=== PATIENT | female | born 1995 | race Caucasian/White ===

== ENCOUNTER 2021-05-23 11:27 | Outpatient (CLI) | payer OTHER, MEDICAID, SELFPAY ==
[2021-05-23 07:47] LABS: Hematocrit 36.3 % (37.0-47.0); Hemoglobin 12.9 g/dL (12.0-15.0); Mean Corpuscular HGB Conc 35.5 g/dl (32-36); Mean Corpuscular Volume 92.8 fl (80-100); Mean Platelet Volume 9.8 fl (7.4-10.4); Platelet Count Result 153 k/mm3 (150-375); Red Blood Count 3.91 M/mm3 (4.2-5.4); Red Cell Distribution Width 11.1 % (11.5-14.5); White Blood Count 3.9 K/mm3 (4.5-10.0)
[2021-05-23 07:56] LABS: Alanine Aminotransferase 13 U/L (4-35); Albumin Level 4.4 g/dL (3.5-5.1); Alkaline Phosphatase 65 U/L (38-126); Anion Gap 3 mmol/L (8-16); Aspartate Amino Transferase 23 U/L (14-36); Blood Urea Nitrogen 21 mg/dL (7-17); Calcium 8.8 mg/dL (8.4-10.2); Carbon Dioxide 27 mmol/L (22-30); Chloride 104 mmol/L (98-107); Cholesterol 125 mg/dL (0-200); Estimated Glomerular Filt Rate > 60; Glucose 85 mg/dL (65-110); HDL Direct 52 mg/dL; Sodium 134 mmol/L (137-145); Triglycerides 49 mg/dL (<150)
[2021-05-23 08:07] LABS: LDL Cholesterol Direct 52 mg/dL
[2021-05-23 12:40] LABS: Iron 105 ug/dL (37-170)
[2021-05-23 12:50] LABS: Percent Iron Saturation 33 % (20-50)
[2021-05-24 06:55] LABS: Basophils Percent Auto 0.5 % (0.2-1.2); Eosinophils Absolute Auto 0.1 K/mm3 (0-0.3); Eosinophils Percent Auto 2.1 % (0-4.4); Immature Granulocyte Absolute 0.01 K/mm3 (0.00-0.031); Immature Granulocyte Percent A 0.3 % (0-0.5); Lymphocytes Absolute Auto 1.55 K/mm3 (0.9-3.2); Lymphocytes Percent Auto 40.2 % (18.3-44.2); Monocytes Absolute Auto 0.6 K/mm3 (0.1-0.6); Monocytes Percent Auto 14.8 % (2.6-8.5); Neutrophils Absolute Auto 1.6 K/mm3 (1.3-6.7); Neutrophils Percent Auto 42.1 % (45.5-73.1)
== END 2021-05-23 11:28 | disposition home or self-care (01) ==
PROVIDERS: PCP Family Medicine; Visit Provider Nurse Practitioner Family
DX: F41.8 Other specified anxiety disorders (principal); R60.9 Edema, unspecified; E55.9 Vitamin D deficiency, unspecified; Z13.220 Encounter for screening for lipoid disorders; D64.9 Anemia, unspecified
CPT/HCPCS: 36415; 80053; 80061; 82306; 83540; 83550; 84443; 85025; 85027

== ENCOUNTER 2021-05-28 11:27 | Outpatient (CLI) | payer OTHER, MEDICAID, SELFPAY ==
[2021-05-28 12:03] LABS: CRP < 0.5 mg/dL (<1.0); Rheumatoid Factor < 8.6 IU/ML (<12)
[2021-05-28 12:15] LABS: Erythrocyte Sedimentation Rate 11 mm/hr (0-20)
== END 2021-05-28 11:28 | disposition home or self-care (01) ==
PROVIDERS: PCP Family Medicine; Visit Provider Nurse Practitioner Family
DX: R60.9 Edema, unspecified (principal)
CPT/HCPCS: 36415; 85652; 86038; 86140; 86430

== ENCOUNTER 2021-06-27 11:32 | Outpatient (CLI) | payer OTHER, MEDICAID, SELFPAY ==
[2021-06-27 11:52] LABS: Hemoglobin 13.7 g/dL (12.0-15.0); Mean Corpuscular HGB Conc 34.3 g/dl (32-36); Mean Corpuscular Hemoglobin 32.7 pg (26-34); Mean Corpuscular Volume 95.5 fl (80-100); Mean Platelet Volume 9.7 fl (7.4-10.4); Platelet Count Result 190 k/mm3 (150-375); Red Blood Count 4.19 M/mm3 (4.2-5.4); Red Cell Distribution Width 11.4 % (11.5-14.5); White Blood Count 5.7 K/mm3 (4.5-10.0)
== END 2021-06-27 11:33 | disposition home or self-care (01) ==
LOC: ANHLAB 11:34
PROVIDERS: PCP Family Medicine; Visit Provider Nurse Practitioner Family
DX: D72.9 Disorder of white blood cells, unspecified (principal)
CPT/HCPCS: 36415; 85027

== ENCOUNTER 2021-08-14 07:20 | Outpatient (CLI) | payer OTHER, MEDICAID, SELFPAY ==
--- NOTE | ~2021-08-14 | XR_ITS ---
EXAMINATION: XR chest 2V 08/14/2021 07:32 INDICATION: Cough. Recent Covid infection. PROCEDURE: 2 view chest COMPARISON: No prior studies for comparison. FINDINGS: The lungs are clear. The cardiomediastinal silhouette is within normal limits. There are no pleural effusions. There is no pneumothorax suspected. IMPRESSION: 1: NO ACUTE CARDIOPULMONARY DISEASE. Reviewed, dictated and finalized at location A.
== END 2021-08-14 07:21 | disposition home or self-care (01) ==
PROVIDERS: PCP Family Medicine; Visit Provider Nurse Practitioner Family
DX: R05.9 Cough, unspecified (principal)
CPT/HCPCS: 71046

== ENCOUNTER 2021-11-27 16:39 | Outpatient (CLI) | payer OTHER, MEDICAID, SELFPAY ==
[2021-11-27 17:01] LABS: Basophils Percent Auto 0.7 % (0.2-1.2); Eosinophils Absolute Auto 0.1 K/mm3 (0-0.3); Eosinophils Percent Auto 1.3 % (0-4.4); Hematocrit 38.1 % (37.0-47.0); Hemoglobin 13.2 g/dL (12.0-15.0); Immature Granulocyte Absolute 0.01 K/mm3 (0.00-0.031); Immature Granulocyte Percent A 0.2 % (0-0.5); Lymphocytes Absolute Auto 1.99 K/mm3 (0.9-3.2); Lymphocytes Percent Auto 32.6 % (18.3-44.2); Mean Corpuscular HGB Conc 34.6 g/dl (32-36); Mean Corpuscular Hemoglobin 32.6 pg (26-34); Mean Corpuscular Volume 94.1 fl (80-100); Mean Platelet Volume 9.6 fl (7.4-10.4); Monocytes Absolute Auto 0.6 K/mm3 (0.1-0.6); Monocytes Percent Auto 9.7 % (2.6-8.5); Neutrophils Absolute Auto 3.4 K/mm3 (1.3-6.7); Neutrophils Percent Auto 55.5 % (45.5-73.1); Platelet Count Result 194 k/mm3 (150-375); Red Blood Count 4.05 M/mm3 (4.2-5.4); Red Cell Distribution Width 11.4 % (11.5-14.5); White Blood Count 6.1 K/mm3 (4.5-10.0)
[2021-11-27 17:10] LABS: Alanine Aminotransferase 13 U/L (6-35); Albumin Level 4.8 g/dL (3.5-5.1); Alkaline Phosphatase 69 U/L (38-126); Anion Gap 11 mmol/L (8-16); Aspartate Amino Transferase 23 U/L (14-36); Bilirubin,Total 0.6 mg/dL (0.2-1.3); Blood Urea Nitrogen 11 mg/dL (7-17); Calcium 9.8 mg/dL (8.4-10.2); Carbon Dioxide 27 mmol/L (22-30); Chloride 103 mmol/L (98-107); Estimated Glomerular Filt Rate > 60; Glucose 85 mg/dL (65-110); Potassium 3.6 mmol/L (3.4-5.0); Sodium 141 mmol/L (137-145)
[2021-11-27 17:33] LABS: Iron 69 ug/dL (37-170)
[2021-11-27 17:43] LABS: Percent Iron Saturation 20 % (20-50)
[2021-11-27 17:53] LABS: Vitamin D 25 Hydroxy 41.8 ng/mL
[2021-11-30 15:49] LABS: Testosterone Free 2.5 pg/mL (0.1-6.4); Testosterone Total 17 ng/dL (2-45)
== END 2021-11-27 16:40 | disposition home or self-care (01) ==
PROVIDERS: PCP Family Medicine; Visit Provider Family Medicine
DX: E55.9 Vitamin D deficiency, unspecified (principal); D64.9 Anemia, unspecified; R53.83 Other fatigue; R68.82 Decreased libido; F41.8 Other specified anxiety disorders
CPT/HCPCS: 36415; 80048; 80076; 82306; 82607; 83540; 83550; 84402; 84403; 84443; 85025

== ENCOUNTER 2022-04-01 11:40 | Outpatient (CLI) | payer OTHER, MEDICAID, SELFPAY ==
[2022-04-01 12:47] LABS: Hematocrit 39.4 % (37.0-47.0); Hemoglobin 13.5 g/dL (12.0-15.0); Mean Corpuscular HGB Conc 34.3 g/dl (32-36); Mean Corpuscular Hemoglobin 32.4 pg (26-34); Mean Corpuscular Volume 94.5 fl (80-100); Mean Platelet Volume 9.9 fl (7.4-10.4); Platelet Count Result 180 k/mm3 (150-375); Red Blood Count 4.17 M/mm3 (4.2-5.4); Red Cell Distribution Width 11.4 % (11.5-14.5)
== END 2022-04-01 11:41 | disposition home or self-care (01) ==
PROVIDERS: PCP Family Medicine; Visit Provider Nurse Practitioner Family
DX: D64.9 Anemia, unspecified (principal)
CPT/HCPCS: 36415; 85027

== ENCOUNTER 2022-04-16 07:20 | Outpatient (CLI) | payer OTHER, MEDICAID, SELFPAY ==
[2022-04-16 08:13] LABS: Hemoglobin 13.5 g/dL (12.0-15.0); Mean Corpuscular HGB Conc 34.6 g/dl (32-36); Mean Corpuscular Hemoglobin 32.1 pg (26-34); Mean Corpuscular Volume 92.9 fl (80-100); White Blood Count 5.6 K/mm3 (4.5-10.0)
[2022-04-16 08:14] LABS: Basophils Percent Auto 0.7 % (0.2-1.2); Eosinophils Absolute Auto 0.1 K/mm3 (0-0.3); Eosinophils Percent Auto 1.6 % (0-4.4); Immature Granulocyte Absolute 0.02 K/mm3 (0.00-0.031); Immature Granulocyte Percent A 0.4 % (0-0.5); Lymphocytes Absolute Auto 2.01 K/mm3 (0.9-3.2); Lymphocytes Percent Auto 35.9 % (18.3-44.2); Mean Platelet Volume 9.9 fl (7.4-10.4); Monocytes Absolute Auto 0.6 K/mm3 (0.1-0.6); Monocytes Percent Auto 9.8 % (2.6-8.5); Neutrophils Absolute Auto 2.9 K/mm3 (1.3-6.7); Neutrophils Percent Auto 51.6 % (45.5-73.1); Platelet Count Result 198 k/mm3 (150-375); Red Cell Distribution Width 11.1 % (11.5-14.5)
[2022-04-16 08:24] LABS: Anion Gap 5 mmol/L (8-16); Blood Urea Nitrogen 12 mg/dL (7-17); Calcium 9.1 mg/dL (8.4-10.2); Carbon Dioxide 29 mmol/L (22-30); Chloride 105 mmol/L (98-107); Estimated Glomerular Filt Rate > 60; Glucose 81 mg/dL (65-110); Sodium 139 mmol/L (137-145)
[2022-04-16 08:57] LABS: Free T4 Free Thyroxine 1.02 ng/mL (0.78-2.19); Vitamin D 25 Hydroxy 27.2 ng/mL
== END 2022-04-16 07:21 | disposition home or self-care (01) ==
LOC: ANHLAB 07:22
PROVIDERS: PCP Family Medicine; Visit Provider Family Medicine
DX: D64.9 Anemia, unspecified (principal); Z13.39 Encounter for screening examination for other mental health and behavioral disorders; E55.9 Vitamin D deficiency, unspecified
CPT/HCPCS: 36415; 80048; 82306; 84439; 84443; 85025

== ENCOUNTER 2022-05-14 08:11 | Outpatient (CLI) | payer OTHER, MEDICAID, SELFPAY ==
--- NOTE | 2022-05-26 13:46 | WPDHOMESLEEP ---
Sleep Study - Home Unattended Date of Study: 05/14/22 Ordering Provider: Homer Long MD Interpreting Provider: Terri Zimmerman, DO Home Sleep Study Type: Watch PAT Height: 1.7 m Weight: 60.328 kg Body Mass Index: 20.8 Neck Circumference (inches): 13 [place]: 9 Reason for Sleep Study Unrefreshing sleep Sleep History The patient is a 26-year-old female with anxiety, depression, ADHD and Raynaud's syndrome that had a sleep study for evaluation of sleep apnea. The patient denies awakening from sleep short of breath. She denies awakening night with heartburn, belching or. She occasionally snores but is never loudly that others. He occasionally has trouble sleeping she has a cold. He denies waking gasping for air throughout the night. She denies having breathing problems at night observed by herself or others. She frequently sweats excessively at night. He denies having heart palpitations or irregular heartbeats during the night. She occasionally falls asleep the day but never while driving. She rarely experiences loss of muscle tone when extremely. He rarely has trouble at school work due to sleepiness. She denies sleep paralysis and hypnagogic/ hypnopompic hallucinations. He rarely feels afraid of to sleep. She denies having nightmares. She rarely remembers her dreams. She occasionally has thoughts racing through her mind. She rarely feels sad or depressed. She occasionally has anxiety. She denies having muscular tension. She rarely notices parts of her body jerk. She rarely kicks during the night. She denies having crawling and aching feelings in her legs as well as leg pain during the night. She denies grinding her teeth during sleep and denies awakening with morning jaw pain. She denies being bothered by pain during the day and denies being awakened by pain during the night. She denies waking up feeling stiff morning. She denies waking up with sore or achy muscles. Rarely wakes up with pain in the neck, spine or other joints. She goes to bed between 8:30-10 p.m. on weekdays and between 10:00 p.m. to midnight on the weekends. Takes her 30-60 minutes to fall asleep. She wakes up 1-2 times throughout the night for unknown reasons. It takes her 20 minutes to fall back asleep. He wakes up 5:30 a.m. weekdays and between 7-7:30 a.m. the weekends. She typically gets 6-8 hours of sleep per night. She stayed in bed for 5-10 after waking up the morning. She currently lives with her and 3 children. She does not consume any caffeinated beverages within 2 hours of bedtime. She does engage in physical exercise before bedtime. She will watch television before falling asleep. She will take naps in afternoon or the evening on the weekends but they are not refreshing. She consumes 1 energy drink per day. She will have an alcoholic beverage occasionally. She denies tobacco and recreational drug use. FORMERLY [facility] Past Medical History Medical History Decreased libido Excessive daytime sleepiness Fatigue Presence of internal fixation kashmir in right upper extremity Surgical History Surgical History H/O tubal ligation Social History Social History Smoking status: Never smoker Alcohol intake: current Drinks per week: 0 Alcohol use details: Socially Substance use: never Substance use type: does not use Living arrangements: with family Occupation/Education: occupation Additional occupation/education comments: [employer] staff Gender identity (if verbalized by the patient): Female Sexual Orientation (if Verbalized by the Patient): Straight or Heterosexual Spiritual care concerns: No Agree to blood products: Yes Medications Home Medications Medication Instructions Recorded Confirmed Type hydroxyzine HCl 10 mg tablet 10 m
[2022-05-26 13:53] VITALS: BMI 20.8
== END 2022-05-15 08:57 | disposition home or self-care (01) ==
LOC: ANHCSM 08:14
PROVIDERS: PCP Family Medicine; Visit Provider Family Medicine
DX: G47.10 Hypersomnia, unspecified (principal); G47.19 Other hypersomnia
CPT/HCPCS: 95800

== ENCOUNTER 2022-07-30 11:33 | Outpatient (CLI) | payer OTHER, MEDICAID, SELFPAY ==
[2022-07-30 11:57] LABS: Basophils Percent Auto 0.5 % (0.2-1.2); Eosinophils Absolute Auto 0.1 K/mm3 (0-0.3); Eosinophils Percent Auto 1.3 % (0-4.4); Hematocrit 42.1 % (37.0-47.0); Hemoglobin 14.1 g/dL (12.0-15.0); Immature Granulocyte Absolute 0.01 K/mm3 (0.00-0.031); Immature Granulocyte Percent A 0.2 % (0-0.5); Lymphocytes Absolute Auto 2.04 K/mm3 (0.9-3.2); Lymphocytes Percent Auto 34.4 % (18.3-44.2); Mean Corpuscular HGB Conc 33.5 g/dl (32-36); Mean Corpuscular Hemoglobin 31.8 pg (26-34); Mean Corpuscular Volume 94.8 fl (80-100); Mean Platelet Volume 9.4 fl (7.4-10.4); Monocytes Absolute Auto 0.4 K/mm3 (0.1-0.6); Monocytes Percent Auto 6.4 % (2.6-8.5); Neutrophils Absolute Auto 3.4 K/mm3 (1.3-6.7); Neutrophils Percent Auto 57.2 % (45.5-73.1); Platelet Count Result 216 k/mm3 (150-375); Red Blood Count 4.44 M/mm3 (4.2-5.4); Red Cell Distribution Width 11.3 % (11.5-14.5); White Blood Count 5.9 K/mm3 (4.5-10.0)
[2022-07-30 12:14] LABS: Anion Gap 11 mmol/L (8-16); Blood Urea Nitrogen 10 mg/dL (7-17); Calcium 9.2 mg/dL (8.4-10.2); Carbon Dioxide 24 mmol/L (22-30); Chloride 104 mmol/L (98-107); Estimated Glomerular Filt Rate > 60; Glucose 82 mg/dL (65-110); Potassium 3.6 mmol/L (3.4-5.0); Sodium 139 mmol/L (137-145)
[2022-07-30 12:57] LABS: Vitamin D 25 Hydroxy 38.8 ng/mL
[2022-08-04 16:06] LABS: Testosterone Free 1.8 pg/mL (0.1-6.4); Testosterone Total 12 ng/dL (2-45)
== END 2022-07-30 11:34 | disposition home or self-care (01) ==
PROVIDERS: PCP Family Medicine; Visit Provider Family Medicine
DX: L74.9 Eccrine sweat disorder, unspecified (principal); R68.82 Decreased libido; D64.9 Anemia, unspecified; E55.9 Vitamin D deficiency, unspecified
CPT/HCPCS: 36415; 80048; 82306; 84402; 84403; 84443; 85025

== ENCOUNTER 2022-08-01 14:49 | Outpatient (CLI) | payer OTHER, MEDICAID, SELFPAY ==
--- NOTE | ~2022-08-01 | XR_ITS ---
EXAMINATION: [id number]_[id number]_CR DATE: 08/01/2022 15:07 INDICATION: Left foot pain. TECHNIQUE: 3 views of the left foot with weightbearing were obtained. COMPARISON: None. FINDINGS: Bone alignment is normal. No fracture. Joint spaces are well maintained. IMPRESSION: 1. Normal left foot. Reviewed, dictated and finalized at location E. IMPRESSION: 1. Normal left foot.
== END 2022-08-01 14:50 | disposition home or self-care (01) ==
PROVIDERS: PCP Family Medicine; Visit Provider Family Medicine
DX: M79.672 Pain in left foot (principal)
CPT/HCPCS: 73630

== ENCOUNTER 2022-12-17 11:01 | Outpatient (CLI) | payer OTHER, MEDICAID, SELFPAY ==
--- NOTE | ~2022-12-17 | XR_ITS ---
EXAM: XR patella LT DATE: 12/17/2022 11:29 HISTORY: M25.562 - Pain in left knee . COMPARISON: X-ray left knee, same date. FINDINGS: Normal mineralization. No fracture or dislocation. No lytic or blastic lesion. Joint space s are maintained. No erosion or periosteal change. Soft tissues within normal limits. IMPRESSION: Normal patellar radiograph findings. Reviewed, dictated and finalized at location K.
--- NOTE | ~2022-12-17 | XR_ITS ---
XR knee LT min 4V 12/17/2022 11:29 Indication: Left knee pain Procedure: 4 views left knee Comparison: No prior studies for comparison. Findings: There is anatomic alignment. No fracture, subluxation or dislocation. No significant joint effusion. No foreign bodies. Impression: 1: No significant bone or joint abnormality. Reviewed, dictated and finalized at location L. Impression: 1: No significant bone or joint abnormality.
== END 2022-12-17 11:02 | disposition home or self-care (01) ==
PROVIDERS: PCP Family Medicine; Visit Provider Family Medicine
DX: M25.562 Pain in left knee (principal)
CPT/HCPCS: 73560; 73564

== ENCOUNTER 2023-01-14 07:17 | Outpatient (CLI) | payer OTHER, MEDICAID, SELFPAY ==
[2023-01-14 07:47] LABS: Basophils Percent Auto 0.5 % (0.2-1.2); Eosinophils Absolute Auto 0.1 K/mm3 (0-0.3); Eosinophils Percent Auto 2.5 % (0-4.4); Hematocrit 41.8 % (37.0-47.0); Immature Granulocyte Absolute 0.02 K/mm3 (0.00-0.031); Immature Granulocyte Percent A 0.4 % (0-0.5); Lymphocytes Absolute Auto 2.15 K/mm3 (0.9-3.2); Lymphocytes Percent Auto 38.4 % (18.3-44.2); Mean Corpuscular HGB Conc 33.5 g/dl (32-36); Mean Corpuscular Volume 95.4 fl (80-100); Mean Platelet Volume 9.6 fl (7.4-10.4); Monocytes Absolute Auto 0.6 K/mm3 (0.1-0.6); Monocytes Percent Auto 10.4 % (2.6-8.5); Neutrophils Absolute Auto 2.7 K/mm3 (1.3-6.7); Neutrophils Percent Auto 47.8 % (45.5-73.1); Platelet Count Result 202 k/mm3 (150-375); Red Blood Count 4.38 M/mm3 (4.2-5.4); White Blood Count 5.6 K/mm3 (4.5-10.0)
[2023-01-14 08:59] LABS: Erythrocyte Sedimentation Rate 10 mm/hr (0-20)
[2023-01-14 09:11] LABS: Vitamin D 25 Hydroxy 42.6 ng/mL
[2023-01-14 09:37] LABS: Alanine Aminotransferase 16 U/L (6-35); Albumin Level 4.7 g/dL (3.5-5.1); Alkaline Phosphatase 64 U/L (38-126); Anion Gap 8 mmol/L (8-16); Aspartate Amino Transferase 24 U/L (14-36); Bilirubin,Total 0.7 mg/dL (0.2-1.3); Blood Urea Nitrogen 14 mg/dL (7-17); Calcium 9.3 mg/dL (8.4-10.2); Carbon Dioxide 28 mmol/L (22-30); Chloride 102 mmol/L (98-107); Estimated Glomerular Filt Rate > 60; Glucose 80 mg/dL (65-110); Potassium 3.8 mmol/L (3.4-5.0); Sodium 138 mmol/L (137-145)
[2023-01-17 16:14] LABS: Testosterone Free 1.8 pg/mL (0.1-6.4); Testosterone Total 14 ng/dL (2-45)
[2023-01-24 20:46] LABS: Estrogen 278 pg/mL
== END 2023-01-14 07:18 | disposition home or self-care (01) ==
LOC: ANHLAB 07:19
PROVIDERS: PCP Family Medicine; Visit Provider Family Medicine
DX: D64.9 Anemia, unspecified (principal); E87.1 Hypo-osmolality and hyponatremia; L74.9 Eccrine sweat disorder, unspecified; E55.9 Vitamin D deficiency, unspecified
CPT/HCPCS: 36415; 80053; 82306; 82672; 83001; 84402; 84403; 84443; 85025; 85652

== ENCOUNTER 2023-10-15 07:12 | Outpatient (CLI) | payer OTHER, SELFPAY ==
[2023-10-15 07:35] LABS: Basophils Percent Auto 0.5 % (0.2-1.2); Eosinophils Absolute Auto 0.1 K/mm3 (0-0.3); Eosinophils Percent Auto 1.7 % (0-4.4); Hematocrit 42.6 % (37.0-47.0); Hemoglobin 14.6 g/dL (12.0-15.0); Immature Granulocyte Absolute 0.02 K/mm3 (0.00-0.031); Immature Granulocyte Percent A 0.3 % (0-0.5); Lymphocytes Absolute Auto 1.88 K/mm3 (0.9-3.2); Lymphocytes Percent Auto 32.2 % (18.3-44.2); Mean Corpuscular HGB Conc 34.3 g/dl (32-36); Mean Corpuscular Hemoglobin 33.1 pg (26-34); Mean Corpuscular Volume 96.6 fl (80-100); Mean Platelet Volume 9.7 fl (7.4-10.4); Monocytes Absolute Auto 0.5 K/mm3 (0.1-0.6); Monocytes Percent Auto 9.2 % (2.6-8.5); Neutrophils Absolute Auto 3.3 K/mm3 (1.3-6.7); Neutrophils Percent Auto 56.1 % (45.5-73.1); Platelet Count Result 194 k/mm3 (150-375); Red Blood Count 4.41 M/mm3 (4.2-5.4); Red Cell Distribution Width 11.3 % (11.5-14.5); White Blood Count 5.8 K/mm3 (4.5-10.0)
[2023-10-15 07:56] LABS: Alanine Aminotransferase 19 U/L (6-35); Albumin Level 4.8 g/dL (3.5-5.1); Alkaline Phosphatase 55 U/L (38-126); Anion Gap 7 mmol/L (4-12); Aspartate Amino Transferase 28 U/L (14-36); Blood Urea Nitrogen 17 mg/dL (7-17); Calcium 9.5 mg/dL (8.4-10.2); Carbon Dioxide 29 mmol/L (22-30); Chloride 101 mmol/L (98-107); Estimated Glomerular Filt Rate > 60; Glucose 78 mg/dL (65-110); Potassium 4.2 mmol/L (3.4-5.0); Sodium 137 mmol/L (137-145)
[2023-10-15 09:04] LABS: Vitamin D 25 Hydroxy 45.2 ng/mL
[2023-10-16 12:03] LABS: FSH 2.2 mIU/mL; LH 1.6 mIU/mL
[2023-10-18 17:13] LABS: Estrogen 364 pg/mL
== END 2023-10-15 07:13 | disposition home or self-care (01) ==
LOC: ANHLAB 07:15
PROVIDERS: PCP Family Medicine; Visit Provider Nurse Practitioner Family
DX: R63.4 Abnormal weight loss (principal); D64.9 Anemia, unspecified; R61 Generalized hyperhidrosis; E55.9 Vitamin D deficiency, unspecified; R68.82 Decreased libido
CPT/HCPCS: 36415; 80053; 82306; 82672; 83001; 83002; 84443; 85025

== ENCOUNTER 2024-03-09 08:37 | Outpatient (CLI) | payer OTHER, SELFPAY ==
[2024-03-09 09:16] LABS: Basophils Percent Auto 0.2 % (0.2-1.2); Eosinophils Absolute Auto 0.1 K/mm3 (0-0.3); Eosinophils Percent Auto 1.4 % (0-4.4); Hematocrit 42.1 % (37.0-47.0); Hemoglobin 14.5 g/dL (12.0-15.0); Immature Granulocyte Absolute 0.03 K/mm3 (0.00-0.031); Immature Granulocyte Percent A 0.5 % (0-0.5); Lymphocytes Absolute Auto 1.11 K/mm3 (0.9-3.2); Mean Corpuscular HGB Conc 34.4 g/dl (32-36); Mean Corpuscular Hemoglobin 32.8 pg (26-34); Mean Corpuscular Volume 95.2 fl (80-100); Mean Platelet Volume 9.5 fl (7.4-10.4); Monocytes Absolute Auto 0.6 K/mm3 (0.1-0.6); Monocytes Percent Auto 10.6 % (2.6-8.5); Neutrophils Percent Auto 68.3 % (45.5-73.1); Platelet Count Result 203 k/mm3 (150-375); Red Blood Count 4.42 M/mm3 (4.2-5.4); Red Cell Distribution Width 11.3 % (11.5-14.5); White Blood Count 5.9 K/mm3 (4.5-10.0)
[2024-03-09 09:30] LABS: Alanine Aminotransferase 15 U/L (6-35); Albumin Level 4.1 g/dL (3.5-5.1); Alkaline Phosphatase 70 U/L (38-126); Aspartate Amino Transferase 18 U/L (14-36); Bilirubin,Total 0.7 mg/dL (0.2-1.3)
[2024-03-09 09:37] LABS: Iron 39 ug/dL (37-170)
[2024-03-09 09:46] LABS: Percent Iron Saturation 12 % (20-50)
[2024-03-09 09:58] LABS: Thyroid Stimulating Hormone 0.968 uIU/mL (0.465-4.680)
[2024-03-09 10:13] LABS: Erythrocyte Sedimentation Rate 14 mm/hr (0-20)
[2024-03-09 10:18] LABS: Vitamin D 25 Hydroxy 37.9 ng/mL
[2024-03-09 14:14] LABS: Rapid Plasma Reagin Non-Reactive (NonReactive)
[2024-03-10 16:46] LABS: Free T4 Free Thyroxine 1.13 ng/dL (0.78-2.19)
[2024-03-11 07:39] LABS: CRP, High Sensitivity >20.0 mg/L
[2024-03-12 02:14] LABS: Triiodothyronine T3 Free 2.6 pg/mL (2.3-4.2)
[2024-03-12 11:48] LABS: HIV DNA PCR (Qual) Not Detected
== END 2024-03-09 08:38 | disposition home or self-care (01) ==
PROVIDERS: PCP Family Medicine; Visit Provider Family Medicine
DX: E55.9 Vitamin D deficiency, unspecified (principal); R68.82 Decreased libido; F32.A Depression, unspecified; D64.9 Anemia, unspecified; R61 Generalized hyperhidrosis; I73.00 Raynaud's syndrome without gangrene; E05.90 Thyrotoxicosis, unspecified without thyrotoxic crisis or storm; E07.9 Disorder of thyroid, unspecified
CPT/HCPCS: 36415; 80076; 82306; 82533; 82607; 82728; 83519; 83540; 83550; 84402; 84403; 84439; 84443; 84445; 85025; 85652; 86038; 86039; 86141; 86592; 86800; 87535

== ENCOUNTER 2024-05-26 07:13 | Outpatient (CLI) | payer OTHER, SELFPAY ==
[2024-05-26 09:50] LABS: Free T4 Free Thyroxine 1.05 ng/dL (0.78-2.19); Vitamin D 25 Hydroxy 31.8 ng/mL
[2024-05-27 09:58] LABS: FSH 8.6 mIU/mL; LH 3.4 mIU/mL
[2024-05-31 06:49] LABS: Estradiol, Ultrasensitive 18 pg/mL
== END 2024-05-26 07:14 | disposition home or self-care (01) ==
LOC: ANHLAB 07:15
PROVIDERS: PCP Family Medicine; Visit Provider Family Medicine
DX: E05.90 Thyrotoxicosis, unspecified without thyrotoxic crisis or storm (principal); R61 Generalized hyperhidrosis; E55.9 Vitamin D deficiency, unspecified
CPT/HCPCS: 36415; 82306; 82670; 83001; 83002; 84439; 84443

== ENCOUNTER 2024-06-10 06:37 | Outpatient (CLI) | payer OTHER, SELFPAY ==
--- NOTE | ~2024-06-10 | MR_ITS ---
EXAMINATION: MR pituitary wo/w con DATE: 06/10/2024 07:42 INDICATION: Endocrine disorder with abnormal weight loss TECHNIQUE: Magnetic resonance imaging (MRI) of the brain and brainstem was performed without and with 11 mL ProHance intravenous contrast. Whole-brain sequences included sagittal T1-weighted FSE, axial diffusion-weighted FS EPI, axial T2*-weighted GRE, axial T2-weighted FLAIR Propeller, and axial T2-we ighted Propeller. Small gmnmu-gz-cokg sequences included sagittal and coronal T1-weighted FSE centere d at the pituitary. Postcontrast sequences included small jhumk-xh-oqlp coronal T1-weighted FSE in a time course and sagittal T1-weighted FSE and whole-brain axial T1-weighted FSE. Apparent diffusion c oefficient (ADC) maps were created. COMPARISON: None. FINDINGS: There are no areas of restricted diffusion to suggest acute infarction. No intracranial hemorrhage. N o abnormal enlargement of the pituitary with flat to slightly concave cephalad margin which does not extend above the sella. There is however slight rightward deviation of the pituitary infundibulum wit h suggestion of a subtle 3 x 4 mm hypoenhancing lesion within the left side of the pituitary which is suspicious for pituitary adenoma. There are no intraparenchymal signal abnormalities seen on the ot er pulse sequences. The ventricles are symmetric and normal in size. There are no abnormal extra-axia l fluid collections. Flow voids are seen in the cerebral arteries on the T2-weighted sequences consis tent with their expected patency. Interval mucoperiosteal thickening in the right frontal, right maxi llary and bilateral ethmoid sinuses. Visualized orbits and soft tissues are unremarkable. IMPRESSION: 1. Slight rightward deviation of the pituitary infundibulum with suggestion of a 3 x 4 mm transiently hypoenhancing macroadenoma the left side of the normal sized pituitary. 2. Otherwise unremarkable brain MR. Reviewed, dictated and finalized at location A. IMPRESSION: 1. Slight rightward deviation of the pituitary infundibulum with suggestion of a 3 x 4 mm transiently hypoenhancing macroadenoma the left side of the normal s ized pituitary. 2. Otherwise unremarkable brain MR.
== END 2024-06-10 06:38 | disposition home or self-care (01) ==
PROVIDERS: PCP Family Medicine; Visit Provider Family Medicine
DX: E34.9 Endocrine disorder, unspecified (principal); R63.4 Abnormal weight loss
CPT/HCPCS: 70553; A9579

== ENCOUNTER 2024-09-22 07:04 | Outpatient (CLI) | payer OTHER, SELFPAY ==
[2024-09-22 07:44] LABS: Hematocrit 39.4 % (37.0-47.0); Hemoglobin 13.3 g/dL (12.0-15.0); Immature Granulocyte Percent A 0.5 % (0-0.5); Lymphocytes Absolute Auto 1.42 K/mm3 (0.9-3.2); Mean Corpuscular HGB Conc 33.8 g/dl (32-36); Mean Corpuscular Hemoglobin 31.6 pg (26-34); Mean Corpuscular Volume 93.6 fl (80-100); Nucleated Red Blood Cells Absolute Auto 0.000 K/mm3 (0.0-0.012); Nucleated Red Blood Cells Perc 0.0 % (0.0-0.2); Platelet Count Result 176 k/mm3 (150-375); Red Blood Count 4.21 M/mm3 (4.2-5.4); White Blood Count 4.0 K/mm3 (4.5-10.0)
[2024-09-22 07:56] LABS: Alanine Aminotransferase 15 U/L (6-35); Albumin Level 4.5 g/dL (3.5-5.1); Alkaline Phosphatase 47 U/L (38-126); Anion Gap 9 mmol/L (4-12); Aspartate Amino Transferase 20 U/L (14-36); Bilirubin,Total 0.6 mg/dL (0.2-1.3); Blood Urea Nitrogen 15 mg/dL (7-17); Calcium 9.5 mg/dL (8.4-10.2); Carbon Dioxide 26 mmol/L (22-30); Chloride 104 mmol/L (98-107); Cholesterol 152 mg/dL (0-200); Estimated Glomerular Filt Rate > 60; Glucose 75 mg/dL (65-110); HDL Direct 70 mg/dL; Potassium 4.0 mmol/L (3.4-5.0); Sodium 139 mmol/L (137-145); Total Protein 7.5 g/dL (6.3-8.2); Triglycerides 46 mg/dL (<150)
[2024-09-22 08:27] LABS: Thyroid Stimulating Hormone 1.690 uIU/mL (0.465-4.680)
== END 2024-09-22 07:05 | disposition home or self-care (01) ==
LOC: ANHLAB 07:05
PROVIDERS: PCP Family Medicine
DX: E05.90 Thyrotoxicosis, unspecified without thyrotoxic crisis or storm (principal); E34.9 Endocrine disorder, unspecified; E55.9 Vitamin D deficiency, unspecified; R63.4 Abnormal weight loss; Z13.1 Encounter for screening for diabetes mellitus; Z13.220 Encounter for screening for lipoid disorders; Z13.29 Encounter for screening for other suspected endocrine disorder; Z13.0 Encounter for screening for diseases of the blood and blood-forming organs and certain disorders involving the immune mechanism; R79.89 Other specified abnormal findings of blood chemistry; L85.8 Other specified epidermal thickening; D49.2 Neoplasm of unspecified behavior of bone, soft tissue, and skin; D16.4 Benign neoplasm of bones of skull and face
CPT/HCPCS: 36415; 80053; 80061; 82306; 82672; 84402; 84403; 84443; 84446; 85025

== ENCOUNTER 2024-10-10 10:18 | Outpatient (CLI) | payer OTHER, SELFPAY ==
--- NOTE | ~2024-10-10 | XR_ITS ---
XR foot RT standing 2V 10/10/2024 10:49 INDICATION: Right foot pain PROCEDURE: 4 views right foot COMPARISON: No prior studies for comparison. FINDINGS: Fracture, dislocation or subluxation is not identified. Lisfranc joint intact. The soft tis sues appear within normal limits. No foreign bodies are identified. IMPRESSION: 1: NO ACUTE BONE OR JOINT ABNORMALITY IDENTIFIED. Reviewed, dictated and finalized at location A.
== END 2024-10-10 10:19 | disposition home or self-care (01) ==
PROVIDERS: PCP Family Medicine; Visit Provider Physician Assistant Medical
DX: S99.921A Unspecified injury of right foot, initial encounter (principal); X58.XXXA Exposure to other specified factors, initial encounter
CPT/HCPCS: 73620

== ENCOUNTER 2024-12-24 15:35 | Outpatient (CLI) | payer OTHER, SELFPAY ==
--- NOTE | ~2024-12-24 | MR_ITS ---
EXAMINATION: MR pituitary wo/w con DATE: 12/24/2024 16:24 INDICATION: Neoplasm of unspecified behavior of endocrine gland. Endocrine disorder. Abnormal weight loss. TECHNIQUE: Magnetic resonance imaging (MRI) of the brain and brainstem was performed without and with 11 mL MultiHance intravenous contrast. COMPARISON: Brain MRI 06/10/2024 FINDINGS: The pituitary is normal in size with height of 5 mm. There is no intracranial hemorrhage, acute infarction, or abnormal intracranial mass lesion. The ventricles are normal in size. The orbits are normal. The paranasal sinuses are clear. The mastoid air cells are normal. IMPRESSION: 1. Normal brain. Normal pituitary. Reviewed, dictated and finalized at location E.
--- OUTSIDE RECORDS SUMMARY | 2024-12-24 15:38 | XMS_ITS | Patient Health Record ---
Author Organization [facility] Address [address] [place], [place] [address] Care Team Providers Care Manager Flight Operations Name Role Phone Luna Rogers Unavailable [phone] Allergies No Known Allergies Results Component Value Reference Range Flag Notes .COMPREHENSIVE METABOLIC CHAMBERLAIN EL ([id number]) CMP Reviewed date:07/29/2024 08:27:47 AM Interpretation: Performing Lab:[facility]-[id number] Olivier NashIxugciUA[address] Johnathon Lafleur MD Notes/Report: FASTING:YES COLLECTION KIT GIVEN TO PATIENT. PATIENT ADVISED TO RETURN. FASTING: YES GLUCOSE 84 65-99 mg/dL N Fasting reference interval UREA NITROGEN (BUN) 14 7-25 mg/dL N CREATININE 1.03 0.50-0.96 mg/dL H EGFR 75 > OR = 60 mL/min/1.73m2 N BUN/CREATININE RATIO 14 6-22 (calc) N SODIUM 140 135-146 mmol/L N POTASSIUM 4.5 3.5-5.3 mmol/L N CHLORIDE 105 98-110 mmol/L N CARBON DIOXIDE 27 20-32 mmol/L N CALCIUM 9.8 8.6-10.2 mg/dL N PROTEIN, TOTAL 7.5 6.1-8.1 g/dL N ALBUMIN 5.1 3.6-5.1 g/dL N GLOBULIN 2.4 1.9-3.7 g/dL (calc) N ALBUMIN/GLOBULIN RATIO 2.1 1.0-2.5 (calc) N BILIRUBIN, TOTAL 0.8 0.2-1.2 mg/dL N ALKALINE PHOSPHATASE 47 31-125 U/L N AST 13 10-30 U/L N ALT 13 6-29 U/L N MAGNESIUM (622) Reviewed date:07/29/2024 08:27:54 AM Interpretation: Performing Lab:[facility]-[id number] Olivier NashEqybcdDP[address] Johnathon Lafleur MD Notes/Report: FASTING:YES COLLECTION KIT GIVEN TO PATIENT. PATIENT ADVISED TO RETURN. FASTING: YES MAGNESIUM 2.3 1.5-2.5 mg/dL N IRON AND TOTAL IRON BINDING CAPACITY (7573) Reviewed date:07/29/2024 08:28:00 AM Interpretation: Performing Lab:[facility]-[id number] Karl NashaKS[address] Johnathon Lafleur MD Notes/Report: FASTING:YES COLLECTION KIT GIVEN TO PATIENT. PATIENT ADVISED TO RETURN. FASTING: YES IRON, TOTAL 136 40-190 mcg/dL N IRON BINDING CAPACITY 370 250-450 mcg/dL (calc) N % SATURATION 37 16-45 % (calc) N .CBC (INCLUDES DIFF/PLT) (63 99) Reviewed date:07/29/2024 08:27:12 AM Interpretation: Performing Lab:[facility] [place] [facility]-Rvnnhq76302 Olivier NashUjjftgGG[address] Johnathon Lafleur MD Notes/Report: FASTING:YES COLLECTION KIT GIVEN TO PATIENT. PATIENT ADVISED TO RETURN. FASTING: YES WHITE BLOOD CELL COUNT 4.3 3.8-10.8 Thousand/uL N RED BLOOD CELL COUNT 4.23 3.80-5.10 Million/uL N HEMOGLOBIN 13.6 11.7-15.5 g/dL N HEMATOCRIT 41.8 35.0-45.0 % N MCV 98.8 80.0-100.0 fL N MCH 32.2 27.0-33.0 pg N MCHC 32.5 32.0-36.0 g/dL N For adults, a slight decrease in the calculated MCHC value (in the range of 30 to 32 g/dL) is most likely not clinically significant; however, it should be interpreted with caution in correlation with other red cell parameters and the patient's clinical condition. RDW 11.3 11.0-15.0 % N PLATELET COUNT 245 140-400 Thousand/uL N MPV 10.4 7.5-12.5 fL N ABSOLUTE NEUTROPHILS 2408 4980-6873 cells/uL N ABSOLUTE LYMPHOCYTES 6646 642-1631 cells/uL N ABSOLUTE MONOCYTES 426 200-950 cells/uL N ABSOLUTE EOSINOPHILS 77 15-500 cells/uL N ABSOLUTE BASOPHILS 30 0-200 cells/uL N NEUTROPHILS 56 N LYMPHOCYTES 31.6 N MONOCYTES 9.9 N EOSINOPHILS 1.8 N BASOPHILS 0.7 N SED RATE BY MODIFIED HOSEA MONTESINOS (809) Reviewed date:07/29/2024 08:27:27 AM Interpretation: Performing Lab:[facility]Bill Flores, BoxtanZP[address] Johnathon Lafleur MD Notes/Report: FASTING:YES COLLECTION KIT GIVEN TO PATIENT. PATIENT ADVISED TO RETURN. FASTING: YES SED RATE BY MODIFIED MARQUITA 2 < OR = 20 mm/h N ACTH, PLASMA (211) Reviewed date:07/31/2024 06:51:55 PM Interpretation: Performing Lab:[facility]/[id number] Christina Luo, LmeeugnauBT[address] Itz Hartley M.D.,PhD Notes/Report: FASTING:YES COLLECTION KIT GIVEN TO PATIENT. PATIENT ADVISED TO RETURN. FASTING: YES ACTH, PLASMA 11 6-50 pg/mL Reference range applies only to specimens collected between 7am-10am. C-REACTIVE PROTEIN (4420) Reviewed date:07/29/2024 08:27:01 AM Interpretation: Performing Lab:[facility]Bill Flores, IqprcuFJ[address] Johnathon Lafleur MD Notes/Report: FASTING:YES COLLECTION KIT GIVEN TO PATIENT. PATIENT ADVISED TO RETURN. FASTING: YES C-REACTIVE PROTEIN <3.0 <8.0 mg/L N RHEUMATOID FACTOR (4418) Reviewed date:07/29/2024 08:27:06 AM Interpretation: Performing Lab:[facility]-Bill Flores, XkblkqEH[address] Johnathon Lafleur MD Notes/Report: FASTING:YES COLLECTION KIT GIVEN TO PATIENT. PATIENT ADVISED TO RETURN. FASTING: YES RHEUMATOID FACTOR <10 <14 IU/mL N CYCLIC CITRULLINATED PEPTIDE (CCP) AB (IGG) (58145) Reviewed date:07/29/2024 08:26:55 AM Interpretation: Performing Lab:[facility] [place] Johnathon Lafleur MD Notes/Report: FASTING:YES COLLECTION KIT GIVEN TO PATIENT. PATIENT ADVISED TO RETURN. FASTING: YES CYCLIC CITRULLINATED PEPTIDE (CCP) AB (IGG) <16 N Reference Range Negative: <20 Weak Positive: 20-39 Moderate Positive: 40-59 Strong Positive: >59 SIMEON SCREEN, IFA, W/REFL TITE R AND PATTERN (249) Reviewed date:07/29/2024 08:27:17 AM Interpretation: Performing Lab:[facility]-Yehshv38421 Karl NashaKS[address] Johnathon Lafleur MD Notes/Report: FASTING:YES COLLECTION KIT GIVEN TO PATIENT. PATIENT ADVISED TO RETURN. FASTING: YES SIMEON SCREEN, IFA NEGATIVE NEGATIVE N SIMEON IFA is a first line screen for detecting the presence of up to approximately 150 autoantibodies in various autoimmune diseases. A negative SIMEON IFA result suggests an SIMEON-associated autoimmune disease is not present at this time, but is not definitive. If there is high clinical suspicion for Sjogren's syndrome, testing for anti-SS-A/Ro antibody should be considered. Anti-Ivana-1 antibody should be considered for clinically suspected inflammatory myopathies. AC-0: Negative International Consensus on SIMEON Patterns (https://doi.org/10.1515/ rnkf-6729-3602) For additional information, please refer to http://education.Signostics/faq/GZS995 (This link is being provided for informational/ educational purposes only.) VITAMIN B12/FOLATE, SERUM PA MARY ANNE (7473) Reviewed date:07/29/2024 08:26:17 AM Interpretation: Performing Lab:[facility] GABRIELa10101 Karl NashaKS[address] Johnathon Lafleur MD Notes/Report: FASTING:YES COLLECTION KIT GIVEN TO PATIENT. PATIENT ADVISED TO RETURN. FASTING: YES VITAMIN B12 387 635-7739 pg/mL N FOLATE, SERUM 15.9 N Reference Range Low: <3.4 Borderline: 3.4-5.4 Normal: >5.4 FERRITIN (457) Reviewed date:07/29/2024 08:26:44 AM Interpretation: Performing Lab:[facility] GABRIELa10101 Karl NashaKS[address] Johnathon Lafleur MD Notes/Report: FASTING:YES COLLECTION KIT GIVEN TO PATIENT. PATIENT ADVISED TO RETURN. FASTING: YES FERRITIN 12 16-154 ng/mL L PROLACTIN (746) Reviewed date:07/29/2024 08:26:36 AM Interpretation: Performing Lab:[facility] [place] Johnathon Lafleur MD Notes/Report: FASTING:YES COLLECTION KIT GIVEN TO PATIENT. PATIENT ADVISED TO RETURN. FASTING: YES PROLACTIN 5.7 N Reference Range Females Non- 3.0-30.0 10.0-209.0 Postmenopausal 2.0-20.0 T4, FREE (866) Reviewed date:07/29/2024 08:26:29 AM Interpretation: Performing Lab:[facility] [place] Johnathon Lafleur MD Notes/Report: FASTING:YES COLLECTION KIT GIVEN TO PATIENT. PATIENT ADVISED TO RETURN. FASTING: YES T4, FREE 1.7 0.8-1.8 ng/dL N CORTISOL, TOTAL (367) Reviewed date:07/29/2024 08:26:50 AM Interpretation: Performing Lab:[facility] [place] Johnathon Lafleur MD Notes/Report: FASTING:YES COLLECTION KIT GIVEN TO PATIENT. PATIENT ADVISED TO RETURN. FASTING: YES CORTISOL, TOTAL 17.5 N Reference Range: For 8 a.m.(7-9 a.m.) Specimen: 4.0-22.0 Reference Range: For 4 p.m.(3-5 p.m.) Specimen: 3.0-17.0 * Please interpret above results accordingly * TSH (899) Reviewed date:07/29/2024 08:26:23 AM Interpretation: Performing Lab:[facility] [place] Johnathon Lafleur MD Notes/Report: FASTING:YES COLLECTION KIT GIVEN TO PATIENT. PATIENT ADVISED TO RETURN. FASTING: YES TSH 2.07 N Reference Range > or = 20 Years 0.40-4.50 Ranges First trimester 0.26-2.66 Second trimester 0.55-2.73 Third trimester 0.43-2.91 T3, FREE (83502) Reviewed date:07/29/2024 08:26:06 AM Interpretation: Performing Lab:[facility]-Nsbamj93477 Flor Flores, NnkotoRW[address] Johnathon Lafleur MD Notes/Report: FASTING:YES COLLECTION KIT GIVEN TO PATIENT. PATIENT ADVISED TO RETURN. FASTING: YES T3, FREE 3.8 2.3-4.2 pg/mL N .VITAMIN D,25-OH,TOTAL,IA (1 7306) Reviewed date:07/31/2024 06:51:55 PM Interpretation: Performing Lab:[facility]-Mtfjdx20004 Flor Flores, TwrggqSB[address] Johnathon Lafleur MD Notes/Report: FASTING:YES COLLECTION KIT GIVEN TO PATIENT. PATIENT ADVISED TO RETURN. FASTING: YES VITAMIN D,25-OH,TOTAL,IA 26 30-100 ng/mL L Vitamin D Status 25-OH Vitamin D: Deficiency: <20 ng/mL Insufficiency: 20 - 29 ng/mL Optimal: > or = 30 ng/mL For 25-OH Vitamin D testing on patients on D2-supplementation and patients for whom quantitation of D2 and D3 fractions is required, the QuestAssureD(TM) 25-OH VIT D, (D2,D3), LC/MS/MS is recommended: order code 66132 (patients >2yrs). See Note 1 Note 1 For additional information, please refer to http://education.Signostics/faq/HHO633 (This link is being provided for informational/ educational purposes only.) Reason For Referral No Information Medications Medication SIG (Take, Route, Frequency, Duration) Notes Start Date End Date Status Adderall 10 MG Tablet 1 tablet Orally Tw ice a day 07/22/2024 Active buPROPion HCl ER (XL) 450 MG Tablet Extended Release 24 Hour TAKE 1 TABLET BY MOUTH EVERY MORNING Oral; Duration: 90 Days Active Adderall XR 20 MG Capsule Extended Release 24 Hour 1 capsule in the morning Orally Once a day 07/22/2024 Active Social History Section Notes: alcohol: socially Problems Problem Type SNOMED Code ICD Code Onset Dates Problem Status W/U Status Risk Notes Problem Vitamin D deficiency (80581320) Vitamin D deficiency, unspecified (E55.9) Active confirmed Problem Polyarthritis (416352204) Polyarthritis (M13.0) Active confirmed Problem Irregular menstruation (12953049) Irregular menstruation (N92.6) Active confirmed Vital Signs Heart Rate 79 /min 07/22/2024 Height-cm 170.18 cm 07/22/2024 Blood pressure diastolic 77 mm Hg 07/22/2024 Weight-kg 54.89 kg 07/22/2024 Height 67 in 07/22/2024 Blood pressure systolic 128 mm Hg 07/22/2024 Weight 121.0 lbs 07/22/2024 BMI 18.95 kg/m2 07/22/2024 Encounters Encounter Location Date Provider Diagnosis [facility] Dr. Rogers [address] [place] [phone] 07/22/2024 Luna Rogers Pituitary microaden dashawn D35.2 ; Irregular menstruation N92.6 ; Abnormal weight loss R63.4 ; Polyarthritis M13.0 and Vitamin D deficiency, unspecified E55.[address] Rogers [address] [place] [phone] 07/28/[address] Rogers [address] [place] [phone] 08/09/2024 Luna Rogers Assessments Encounter Date Diagnosis (ICD Code) Assessment Notes Treatment Notes Treatment Clinical Notes Section Notes 07/22/2024 Irregular menstruation (ICD-10 - N92.6) 07/22/2024 Pituitary microadenoma (ICD-10 - D35.2) 07/22/2024 Abnormal weight loss (ICD-10 - R63.4) 07/22/2024 Polyarthritis (ICD-10 - M13.0) 07/22/2024 Vitamin D deficiency, unspecified (ICD-10 - E55.9) 07/22/2024 Other Assessment and Plan: 1. Unintentional weight loss- Check full thyroid panel including TSH, free T4, and T3- Assess adrenal function with morning cortisol and ACTH levels- If ACTH is elevated, consider dexamethasone suppression test- If cortisol is low, consider ACTH stimulation test- Recommend vitamin D supplementation: 4000 IU daily- Recommend iron supplementation: 65 mg elemental iron daily- Encourage increased caloric intake to 1800 calories per day if possible- Repeat pituitary MRI in 6 months- Follow up in 3-4 weeks to review test results 2. Pituitary microadenoma- Repeat pituitary MRI in 6 months- Assess pituitary function with hormone panel including FSH, LH, prolactin, and growth hormone- Consider referral to pituitary surgeon specialist if ACTH levels are significantly elevated 3. Suspected rheumatological disorder- Order rheumatoid factor and SIMEON tests- Consider referral to assistant reading teacher based on test results and clinical presentation 4. Menstrual irregularities- Check estradiol and progesterone levels- Reassess menstrual cycle regularity after addressing weight loss and potential endocrine abnormalities 5. Headaches- Monitor headache frequency, severity, and relation to menstrual cycle- Reassess after endocrine workup and potential treatment of underlying causes Spent 45 minutes preparing to see the patient (ex review of tests/chart), obtaining and / or reviewing separately obtained history, performing a medically appropriate examination and/or evaluation, counseling and educating the patient/family/home health aide caregiver, ordering medications, tests, or procedures, referring and communicating with other health patient care technician instructor, documenting clinical information in the electronic or other health record, independently interpreting results and communicating results to the patient/family/home health aide caregiver and care coordinating patient plan. Patient alert and oriented x 4 and aware of discussion noted above and in agreeance to plan in management of pituitary microadenoma, irregular cycles, abnormal weight loss, polyarthritis. Plan Of Treatment No Information Insurance Providers Payer Name Payer Address Payer Phone Subscriber Number Group Number Insured Name Patient Relationship to Insured Coverage Start Date Coverage End Date [facility] [address] [address] [place] [address] [phone] [id number] Santa Lozoya Self - patient is the insured Medical (General) History Medical History History ICD Code thyroid issues pituitary adenoma Surgical History Surgery Date(Month/Year) tubal ligation 2019 Hospitalization History Reason Date(Month/Year) broken left arm 2019
== END 2024-12-24 15:36 | disposition home or self-care (01) ==
PROVIDERS: PCP Family Medicine; Visit Provider Nurse Practitioner Family
DX: D49.7 Neoplasm of unspecified behavior of endocrine glands and other parts of nervous system (principal)
CPT/HCPCS: 70553; A9577

== ENCOUNTER 2025-01-24 08:28 | Outpatient (CLI) | payer OTHER, SELFPAY ==
--- OUTSIDE RECORDS SUMMARY | 2025-01-24 08:39 | XMS_ITS | Patient Health Record ---
Author Organization [facility] Address [address] [place] [address] Care Team Providers Care Parent Educator Name Role Phone Luna Rogers Unavailable [phone] Allergies No Known Allergies Results Component Value Reference Range Flag Notes ACTH, PLASMA (211) Reviewed date:07/31/2024 06:51:55 PM Interpretation: Performing Lab:Amita DYER/David Gould [id number] Christina Luo, CdhhnupdpNG[address] Itz Hartley M.D.,PhD Notes/Report: FASTING:YES COLLECTION KIT GIVEN TO PATIENT. PATIENT ADVISED TO RETURN. FASTING: YES ACTH, PLASMA 11 6-50 pg/mL Reference range applies only to specimens collected between 7am-10am. .VITAMIN D,25-OH,TOTAL,IA (1 7375) Reviewed date:07/31/2024 06:51:55 PM Interpretation: Performing Lab:Amita GABRIEL-Gaqpap15851 Flor Flores, EsayrdTR[address] Johnathon Lafleur MD Notes/Report: FASTING:YES COLLECTION KIT [...] D, (D2,D3), LC/MS/MS is recommended: order code 65321 (patients >2yrs). See Note 1 Note 1 For additional information, please refer to http://education.[employer].Every1Mobile/faq/ETX266 (This link is being provided for informational/ educational purposes only.) T3, FREE (05482) Reviewed date:07/29/2024 08:26:06 AM Interpretation: Performing Lab:Amita GABRIEL, DetuvnRU[address] Johnathon Lafleur MD Notes/Report: FASTING:YES COLLECTION KIT GIVEN TO PATIENT. PATIENT ADVISED TO RETURN. FASTING: YES T3, FREE 3.8 2.3-4.2 pg/mL N TSH (899) Reviewed date:07/29/2024 08:26:23 AM Interpretation: Performing Lab:Amita GABRIEL, LrilltAL[address] Johnathon Lafleur MD Notes/Report: FASTING:YES COLLECTION KIT GIVEN TO PATIENT. PATIENT ADVISED TO RETURN. FASTING: YES TSH 2.07 N Reference Range > or = 20 Years 0.40-4.50 Ranges First trimester 0.26-2.66 Second trimester 0.55-2.73 Third trimester 0.43-2.91 T4, FREE (866) Reviewed date:07/29/2024 08:26:29 AM Interpretation: Performing Lab:Amita GABRIEL, UvlpilYG[address] Johnathon Lafleur MD Notes/Report: FASTING:YES COLLECTION KIT GIVEN TO PATIENT. PATIENT ADVISED TO RETURN. FASTING: YES T4, FREE 1.7 0.8-1.8 ng/dL N VITAMIN B12/FOLATE, SERUM PA MARY ANNE (1409) Reviewed date:07/29/2024 08:26:17 AM Interpretation: Performing Lab:Amita GABRIEL-Bill Flores, ZvxcexUP[address] Johnathon Lafleur MD Notes/Report: FASTING:YES COLLECTION KIT GIVEN TO PATIENT. PATIENT ADVISED TO RETURN. FASTING: YES VITAMIN B12 571 798-5975 pg/mL N FOLATE, SERUM 15.9 N Reference Range Low: <3.4 Borderline: 3.4-5.4 Normal: >5.4 SIMEON SCREEN, IFA, W/REFL TITE R AND PATTERN (249) Reviewed date:07/29/2024 08:27:17 AM Interpretation: Performing Lab:Amita GABRIEL WorqksIS[address] Johnathon Lafleur MD Notes/Report: FASTING:YES COLLECTION KIT [...] Negative International Consensus on SIMEON Patterns (https://doi.org/10.1515/ varx-1178-6065) For additional information, please refer to http://education.E[employer]/faq/JRC780 (This link is being provided for informational/ educational purposes only.) RHEUMATOID FACTOR (4418) Reviewed date:07/29/2024 08:27:06 AM Interpretation: Performing Lab:Amita GABRIEL-Bill Flores, SyqrrvRL[address] Johnathon Lafleur MD Notes/Report: FASTING:YES COLLECTION KIT GIVEN TO PATIENT. PATIENT ADVISED TO RETURN. FASTING: YES RHEUMATOID FACTOR <10 <14 IU/mL N C-REACTIVE PROTEIN (4420) Reviewed date:07/29/2024 08:27:01 AM Interpretation: Performing Lab:Amita GABRIEL-Priti Landa[address] Johnathon Lafleur MD Notes/Report: FASTING:YES COLLECTION KIT GIVEN TO PATIENT. PATIENT ADVISED TO RETURN. FASTING: YES C-REACTIVE PROTEIN <3.0 <8.0 mg/L N SED RATE BY MODIFIED WESTNACHO MONTESINOS (809) Reviewed date:07/29/2024 08:27:27 AM Interpretation: Performing Lab:Amita GABRIEL-Omxiux27939Walter Flores, WwkmxsHG[address] Johnathon Lafleur MD Notes/Report: FASTING:YES COLLECTION KIT GIVEN TO PATIENT. PATIENT ADVISED TO RETURN. FASTING: YES SED RATE BY MODIFIED WESTERGREN 2 < OR = 20 mm/h N IRON AND TOTAL IRON BINDING CAPACITY (7573) Reviewed date:07/29/2024 08:28:00 AM Interpretation: Performing Lab:Amita GABRIEL-Bcagzf58838Karl IrahetaaKS[address] Johnathon Lafleur MD Notes/Report: FASTING:YES COLLECTION KIT GIVEN TO PATIENT. PATIENT ADVISED TO RETURN. FASTING: YES IRON, TOTAL 136 40-190 mcg/dL N IRON BINDING CAPACITY 370 250-450 mcg/dL (calc) N % SATURATION 37 16-45 % (calc) N MAGNESIUM (622) Reviewed date:07/29/2024 08:27:54 AM Interpretation: Performing Lab:Amita GABRIEL LenexaKS[address] Johnathon Lafleur MD Notes/Report: FASTING:YES COLLECTION KIT GIVEN TO PATIENT. PATIENT ADVISED TO RETURN. FASTING: YES MAGNESIUM 2.3 1.5-2.5 mg/dL N .COMPREHENSIVE METABOLIC CHAMBERLAIN EL (80897) [facility] Reviewed date:07/29/2024 08:27:47 AM Interpretation: Performing Lab:Amita GABRIEL-Nmtpre58843Reena Flores, HojnklCL[address] Johnathon Lafleur MD Notes/Report: FASTING:YES COLLECTION KIT [...] U/L N ALT 13 6-29 U/L N CORTISOL, TOTAL (367) Reviewed date:07/29/2024 08:26:50 AM Interpretation: Performing Lab:Amita GABRIEL, IxbzldDL[address] Johnathon Lafleur MD Notes/Report: FASTING:YES COLLECTION KIT GIVEN TO PATIENT. PATIENT ADVISED TO RETURN. FASTING: YES CORTISOL, TOTAL 17.5 N Reference Range: For 8 a.m.(7-9 a.m.) Specimen: 4.0-22.0 Reference Range: For 4 p.m.(3-5 p.m.) Specimen: 3.0-17.0 * Please interpret above results accordingly * PROLACTIN (746) Reviewed date:07/29/2024 08:26:36 AM Interpretation: Performing Lab:Amita GABRIEL LenexaKS[address] Johnathon Lafleur MD Notes/Report: FASTING:YES COLLECTION KIT GIVEN TO PATIENT. PATIENT ADVISED TO RETURN. FASTING: YES PROLACTIN 5.7 N Reference Range Females Non- 3.0-30.0 10.0-209.0 Postmenopausal 2.0-20.0 FERRITIN (457) Reviewed date:07/29/2024 08:26:44 AM Interpretation: Performing Lab:Amita GABRIEL LenexaKS[address] Johnathon Lafleur MD Notes/Report: FASTING:YES COLLECTION KIT GIVEN TO PATIENT. PATIENT ADVISED TO RETURN. FASTING: YES FERRITIN 12 16-154 ng/mL L CYCLIC CITRULLINATED PEPTIDE (CCP) AB (IGG) (89000) Reviewed date:07/29/2024 08:26:55 AM Interpretation: Performing Lab:Amita GABRIEL LenexaKS[address] Johnathon Lafleur MD Notes/Report: FASTING:YES COLLECTION KIT GIVEN TO PATIENT. PATIENT ADVISED TO RETURN. FASTING: YES CYCLIC CITRULLINATED PEPTIDE (CCP) AB (IGG) <16 N Reference Range Negative: <20 Weak Positive: 20-39 Moderate Positive: 40-59 Strong Positive: >59 .CBC (INCLUDES DIFF/PLT) (63 99) Reviewed date:07/29/2024 08:27:12 AM Interpretation: Performing Lab:[facility], [facility]-Fvxfaw26908 Flor Flores, RemvjvZP[address] Johnathon Lafleur MD Notes/Report: FASTING:YES COLLECTION KIT [...] 10.4 7.5-12.5 fL N ABSOLUTE NEUTROPHILS 2408 3504-2472 cells/uL N ABSOLUTE LYMPHOCYTES 7879 890-8443 cells/uL N ABSOLUTE MONOCYTES 426 200-950 cells/uL N ABSOLUTE EOSINOPHILS 77 15-500 cells/uL N ABSOLUTE BASOPHILS 30 0-200 cells/uL N NEUTROPHILS 56 N LYMPHOCYTES 31.6 N MONOCYTES 9.9 N EOSINOPHILS 1.8 N BASOPHILS 0.7 N Reason For Referral No Information Medications Medication [...] Status Risk Notes Problem Vitamin D deficiency (27641049) Vitamin D deficiency, unspecified (E55.9) Active confirmed Problem Polyarthritis (081782730) Polyarthritis (M13.0) Active confirmed Problem Irregular menstruation (95038818) Irregular menstruation (N92.6) Active confirmed Vital Signs Heart Rate 79 /min 07/22/2024 Height-cm 170.18 cm 07/22/2024 Blood pressure diastolic 77 mm Hg 07/22/2024 Weight-kg 54.89 kg 07/22/2024 Height 67 in 07/22/2024 Blood pressure systolic 128 mm Hg 07/22/2024 Weight 121.0 lbs 07/22/2024 BMI 18.95 kg/m2 07/22/2024 Encounters Encounter Location Date Provider Diagnosis [facility] Dr. Rogers [address] [place] [phone] 07/22/2024 Luna Rogers Pituitary microaden dashawn D35.2 ; Irregular menstruation N92.6 ; Abnormal weight loss R63.4 ; Polyarthritis M13.0 and Vitamin D deficiency, unspecified E55.[address] Rogers [address] [place] [phone] 07/28/[address] Rogers [address] [place] [phone] 08/09/2024 Luna Rogers Assessments Encounter Date Diagnosis [...] factor and SIMEON tests- Consider referral to eyelet punch operator based on test results and clinical presentation [...] examination and/or evaluation, counseling and educating the patient/family/acute care surgeon, ordering medications, tests, or procedures, referring and communicating with other health child care associate teacher, documenting clinical information in the electronic or other health record, independently interpreting results and communicating results to the patient/family/acute care surgeon and care coordinating patient plan. Patient alert and oriented x 4 and aware of discussion noted above and in agreeance to plan in management of pituitary microadenoma, irregular cycles, abnormal weight loss, polyarthritis. Plan Of Treatment No Information Insurance Providers Payer Name Payer Address Payer Phone Subscriber Number Group Number Insured Name Patient Relationship to Insured Coverage Start Date Coverage End Date [facility] [address] [address] [place] [phone] [id number] Santa Lozoya Self - patient is the insured Medical (General) History Medical History History ICD Code thyroid issues pituitary adenoma Surgical History Surgery Date(Month/Year) tubal ligation 2019 Hospitalization History Reason Date(Month/Year) broken left arm 2019
[2025-01-24 08:50] LABS: Hematocrit 41.0 % (37.0-47.0); Hemoglobin 14.0 g/dL (12.0-15.0); Mean Corpuscular HGB Conc 34.1 g/dl (32-36); Mean Corpuscular Hemoglobin 32.1 pg (26-34); Mean Corpuscular Volume 94.0 fl (80-100); Platelet Count Result 190 k/mm3 (150-375); Red Blood Count 4.36 M/mm3 (4.2-5.4); White Blood Count 5.9 K/mm3 (4.5-10.0)
[2025-01-24 10:04] LABS: Alanine Aminotransferase 16 U/L (6-35); Albumin Level 4.6 g/dL (3.5-5.1); Alkaline Phosphatase 57 U/L (38-126); Aspartate Amino Transferase 20 U/L (14-36); Calcium 9.2 mg/dL (8.4-10.2); Carbon Dioxide 28 mmol/L (22-30); Chloride 104 mmol/L (98-107); Estimated Glomerular Filt Rate > 60
[2025-01-24 10:05] LABS: Anion Gap 8 mmol/L (4-12); Bilirubin,Total 0.7 mg/dL (0.2-1.3); Blood Urea Nitrogen 16 mg/dL (7-17); Glucose 50 mg/dL (65-110); Potassium 3.6 mmol/L (3.4-5.0); Sodium 140 mmol/L (137-145); Total Protein 7.7 g/dL (6.3-8.2)
[2025-01-24 10:17] LABS: Free T4 Free Thyroxine 1.15 ng/dL (0.78-2.19)
[2025-01-24 10:40] LABS: Ferritin 11.60 ng/mL (6.24-137)
[2025-01-24 10:42] LABS: Thyroid Stimulating Hormone 1.170 uIU/mL (0.465-4.680); Total Triiodothyronine (T3) 0.83 NG/ML (0.82-1.58)
== END 2025-01-24 08:29 | disposition home or self-care (01) ==
LOC: ANHLAB 08:29
PROVIDERS: PCP Family Medicine; Visit Provider Family Medicine
DX: E55.9 Vitamin D deficiency, unspecified (principal); R63.4 Abnormal weight loss; E05.90 Thyrotoxicosis, unspecified without thyrotoxic crisis or storm; D64.9 Anemia, unspecified; E16.2 Hypoglycemia, unspecified
CPT/HCPCS: 36415; 80053; 82306; 82533; 82728; 83520; 83525; 83527; 84439; 84443; 84445; 84480; 85027; 86376; 86800

== ENCOUNTER 2025-01-31 07:05 | Outpatient (CLI) | payer OTHER, SELFPAY ==
[2025-01-31 10:25] LABS: Iron 142 ug/dL (37-170)
[2025-01-31 10:34] LABS: Percent Iron Saturation 37 % (20-50)
== END 2025-01-31 07:06 | disposition home or self-care (01) ==
LOC: ANHLAB 07:06
PROVIDERS: PCP Family Medicine; Visit Provider Family Medicine
DX: D49.7 Neoplasm of unspecified behavior of endocrine glands and other parts of nervous system (principal); E16.2 Hypoglycemia, unspecified; D64.9 Anemia, unspecified; E34.9 Endocrine disorder, unspecified; R63.4 Abnormal weight loss
CPT/HCPCS: 36415; 83003; 83540; 83550; 84305; 84681

== ENCOUNTER 2025-02-02 11:01 | Outpatient (CLI) | payer OTHER, SELFPAY ==
--- NOTE | ~2025-02-02 | CT_ITS ---
EXAM/PROCEDURE: CT abdomen pelvis w con HISTORY: rule out endocrine tumors COMPARISON: None available. TECHNIQUE: IV contrast enhanced CT of the abdomen and pelvis performed. FINDINGS: Adrenal glands kidneys visualized ureters and urinary bladder appear normal. The liver spleen pancreas and stomach also appear normal. 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 3.2 cm cyst is present in the right adnexal region. The bowel gas pattern is nonobstructive with no free air free fluid or pneumatosis. Urinary bladder is nondistended but grossly normal. No bulky retroperitoneal or mesenteric lymphadenopathy or masses seen. No grossly inflamed appendix. No AAA. Gallbladder appears normal. Lung bases clear. Bones intact. IMPRESSION: No acute abnormality identified. No lesions seen in the pancreas or kidneys. Bicornuate uterus incidentally noted; a 3.2 cm cyst is also noted in the right adnexal region. Correlate with pelvic ultrasound for optimal evaluation. Reviewed, dictated and finalized at location A. RY VENEER MACHINE OPERATOR IMPRESSION: No acute abnormality identified. No lesions seen in the pancreas or kidneys. Bi cornuate uterus incidentally noted; a 3.2 cm cyst is also noted in the right ad nexal region. Correlate with pelvic ultrasound for optimal evaluation.
--- OUTSIDE RECORDS SUMMARY | 2025-02-02 12:42 | XMS_ITS | Patient Health Record ---
Author Organization [facility] Address [address] [place] [address] Care Team Providers Care Patient Accounts Coordinator Name Role Phone Luna Rogers Unavailable [phone] Allergies No Known Allergies Results Component Value Reference Range Flag Notes ACTH, PLASMA (211) Reviewed date:07/31/2024 06:51:55 PM Interpretation: Performing Lab:Amita DYER/David Gould [id number] Christina Luo, IbdpcdildPY[address] Itz Hartley M.D.,PhD Notes/Report: FASTING:YES COLLECTION KIT GIVEN TO PATIENT. PATIENT ADVISED TO RETURN. FASTING: YES ACTH, PLASMA 11 6-50 pg/mL between 7am-10am. Reference range applies only to specimens collected SED RATE BY MODIFIED HOSEA MONTESINOS (809) Reviewed date:07/29/2024 08:27:27 AM Interpretation: Performing Lab:Amita GABRIEL-Szieli90439 Flor Flores, CfosbnET[address] Johnathon Lafleur MD Notes/Report: FASTING:YES COLLECTION KIT GIVEN TO PATIENT. PATIENT ADVISED TO RETURN. FASTING: YES SED RATE BY MODIFIED WESTNACHOREN 2 < OR = 20 mm/h N IRON AND TOTAL IRON BINDING CAPACITY (7573) Reviewed date:07/29/2024 08:28:00 AM Interpretation: Performing Lab:Amita GABRIEL-Eoxacn71278 Flor Flores, NseybyWM[address] Johnathon Lafleur MD Notes/Report: FASTING:YES COLLECTION KIT GIVEN TO PATIENT. PATIENT ADVISED TO RETURN. FASTING: YES IRON, TOTAL 136 40-190 mcg/dL N IRON BINDING CAPACITY 370 250-450 mcg/dL (calc) N % SATURATION 37 16-45 % (calc) N MAGNESIUM (622) Reviewed date:07/29/2024 08:27:54 AM Interpretation: Performing Lab:Amita GABRIELexa10101 Flor Flores, OcwfkaDN[address] Johnathon Lafleur MD Notes/Report: FASTING:YES COLLECTION KIT GIVEN TO PATIENT. PATIENT ADVISED TO RETURN. FASTING: YES MAGNESIUM 2.3 1.5-2.5 mg/dL N .COMPREHENSIVE METABOLIC CHAMBERLAIN (30858) [facility] Reviewed date:07/29/2024 08:27:47 AM Interpretation: Performing Lab:Amita GABRIELa1Karl WhitingaKS[address] Johnathon Lafleur MD Notes/Report: FASTING:YES COLLECTION KIT [...] Reviewed date:07/29/2024 08:26:36 AM Interpretation: Performing Lab:Amita GABRIEL-Czsrar44799 Flor Flores, UisxnfBM[address] Johnathon Lafleur MD Notes/Report: FASTING:YES COLLECTION KIT GIVEN TO PATIENT. PATIENT ADVISED TO RETURN. FASTING: YES PROLACTIN 5.7 N Females 10.0-209.0 Reference Range Postmenopausal 2.0-20.0 Non- 3.0-30.0 FERRITIN (457) Reviewed date:07/29/2024 08:26:44 AM Interpretation: Performing Lab:Amita GABRIEL-Znwjzq06592 Flor Flores, ZhbczvZS[address] Johnathon Lafleur MD Notes/Report: FASTING:YES COLLECTION KIT GIVEN TO PATIENT. PATIENT ADVISED TO RETURN. FASTING: YES FERRITIN 12 16-154 ng/mL L SIMEON SCREEN, IFA, W/REFL TITE R AND PATTERN (249) Reviewed date:07/29/2024 08:27:17 AM Interpretation: Performing Lab:Amita GABRIEL-Lebwpd22572 Flor Flores, AksvcfXN[address] Johnathon Lafleur MD Notes/Report: FASTING:YES COLLECTION KIT GIVEN TO PATIENT. PATIENT ADVISED TO RETURN. FASTING: YES SIMEON SCREEN, IFA NEGATIVE NEGATIVE N SIMEON IFA is a first line screen for detecting the (This link is being provided for informational/ suggests an SIMEON-associated autoimmune disease is not present at this time, but is not definitive. If there http://education.VenueJam/faq/QEY948 For additional information, please refer to suspected inflammatory myopathies. various autoimmune diseases. A negative SIMEON IFA result (https://doi.org/10.1515/ qjms-2263-2102) is high clinical suspicion for Sjogren's syndrome, presence of up to approximately 150 autoantibodies in International Consensus on SIMEON Patterns educational purposes only.) AC-0: Negative testing for anti-SS-A/Ro antibody should be considered. Anti-Ivana-1 antibody should be considered for clinically CYCLIC CITRULLINATED PEPTIDE (CCP) AB (IGG) (11969) Reviewed date:07/29/2024 08:26:55 AM Interpretation: Performing Lab:Amita GABRIEL-Neqyxm47471 Priti Nash[address] Johnathon Lafleur MD Notes/Report: FASTING:YES COLLECTION KIT GIVEN TO PATIENT. PATIENT ADVISED TO RETURN. FASTING: YES CYCLIC CITRULLINATED PEPTIDE (CCP) AB (IGG) <16 N Reference Range Strong Positive: >59 Moderate Positive: 40-59 Weak Positive: 20-39 Negative: <20 RHEUMATOID FACTOR (4418) Reviewed date:07/29/2024 08:27:06 AM Interpretation: Performing Lab:Amita GABRIEL-Priti Landa[address] Johnathon Lafleur MD Notes/Report: FASTING:YES COLLECTION KIT GIVEN TO PATIENT. PATIENT ADVISED TO RETURN. FASTING: YES RHEUMATOID FACTOR <10 <14 IU/mL N C-REACTIVE PROTEIN (4420) Reviewed date:07/29/2024 08:27:01 AM Interpretation: Performing Lab:Amita GABRIEL-Priti Landa[address] Johnathon Lafleur MD Notes/Report: FASTING:YES COLLECTION KIT GIVEN TO PATIENT. PATIENT ADVISED TO RETURN. FASTING: YES C-REACTIVE PROTEIN <3.0 <8.0 mg/L N .CBC (INCLUDES DIFF/PLT) (63 99) Reviewed date:07/29/2024 08:27:12 AM Interpretation: Performing Lab:Amita GABRIEL-Giligb39938Priti Iraheta[address] Johnathon Lafleur MD Notes/Report: FASTING:YES COLLECTION KIT GIVEN TO PATIENT. PATIENT ADVISED TO RETURN. FASTING: YES WHITE BLOOD CELL COUNT 4.3 3.8-10.8 Thousand/uL N RED BLOOD CELL COUNT 4.23 3.80-5.10 Million/uL N HEMOGLOBIN 13.6 11.7-15.5 g/dL N HEMATOCRIT 41.8 35.0-45.0 % N MCV 98.8 80.0-100.0 fL N MCH 32.2 27.0-33.0 pg N MCHC 32.5 32.0-36.0 g/dL N interpreted with caution in correlation with other value (in the range of 30 to 32 g/dL) is most likely condition. not clinically significant; however, it should be For adults, a slight decrease in the calculated MCHC red cell parameters and the patient's clinical RDW 11.3 11.0-15.0 % N PLATELET COUNT 245 140-400 Thousand/uL N MPV 10.4 7.5-12.5 fL N ABSOLUTE NEUTROPHILS 2408 9899-0748 cells/uL N ABSOLUTE LYMPHOCYTES 8459 751-6207 cells/uL N ABSOLUTE MONOCYTES 426 200-950 cells/uL N ABSOLUTE EOSINOPHILS 77 15-500 cells/uL N ABSOLUTE BASOPHILS 30 0-200 cells/uL N NEUTROPHILS 56 N LYMPHOCYTES 31.6 N MONOCYTES 9.9 N EOSINOPHILS 1.8 N BASOPHILS 0.7 N T3, FREE (21203) Reviewed date:07/29/2024 08:26:06 AM Interpretation: Performing Lab:Amita GABRIEL-Vcflya32320 Flor Floers, EiewpcKQ[address] Johnathon Lafleur MD Notes/Report: FASTING:YES COLLECTION KIT GIVEN TO PATIENT. PATIENT ADVISED TO RETURN. FASTING: YES T3, FREE 3.8 2.3-4.2 pg/mL N TSH (899) Reviewed date:07/29/2024 08:26:23 AM Interpretation: Performing Lab:Amita GABRIEL-Ufjnlh49615 Flor Flores, VgogcdAX[address] Johnathon Lafleur MD Notes/Report: FASTING:YES COLLECTION KIT GIVEN TO PATIENT. PATIENT ADVISED TO RETURN. FASTING: YES TSH 2.07 N > or = 20 Years 0.40-4.50 Reference Range Third trimester 0.43-2.91 Second trimester 0.55-2.73 First trimester 0.26-2.66 Ranges T4, FREE (866) Reviewed date:07/29/2024 08:26:29 AM Interpretation: Performing Lab:Amita GABRIEL-Sidutf18146 Karl NashaKS[address] Johnathon Lafleur MD Notes/Report: FASTING:YES COLLECTION KIT GIVEN TO PATIENT. PATIENT ADVISED TO RETURN. FASTING: YES T4, FREE 1.7 0.8-1.8 ng/dL N VITAMIN B12/FOLATE, SERUM PA MARY ANNE (7393) Reviewed date:07/29/2024 08:26:17 AM Interpretation: Performing Lab:NERY [facility] Leigh Ann-Oinooq87409 Karl NashaKS[address] Johnathon Lafleur MD Notes/Report: FASTING:YES COLLECTION KIT GIVEN TO PATIENT. PATIENT ADVISED TO RETURN. FASTING: YES VITAMIN B12 766 656-4291 pg/mL N FOLATE, SERUM 15.9 N Borderline: 3.4-5.4 Low: <3.4 Reference Range Normal: >5.4 .VITAMIN D,25-OH,TOTAL,IA (1 7306) Reviewed date:07/31/2024 06:51:55 PM Interpretation: Performing Lab:Amita GABRIELexa10101 Karl NashaKS[address] Johnathon Lafleur MD Notes/Report: FASTING:YES COLLECTION KIT GIVEN TO PATIENT. PATIENT ADVISED TO RETURN. FASTING: YES VITAMIN D,25-OH,TOTAL,IA 26 30-100 ng/mL L educational purposes only.) For additional information, please refer to Note 1 of D2 and D3 fractions is required, the Zooomr() code 28119 (patients >2yrs). 25-OH VIT D, (D2,D3), LC/MS/MS is recommended: order D2-supplementation and patients for whom quantitation Insufficiency: 20 - 29 ng/mL (This link is being provided for informational/ Optimal: > or = 30 ng/mL Vitamin D Status 25-OH Vitamin D: For 25-OH Vitamin D testing on patients on Deficiency: <20 ng/mL http://education.VenueJam/faq/QLC430 See Note 1 Reason For Referral No Information Medications Medication [...] Status Risk Notes Problem Vitamin D deficiency (46716012) Vitamin D deficiency, unspecified (E55.9) Active confirmed Problem Polyarthritis (583507684) Polyarthritis (M13.0) Active confirmed Problem Irregular menstruation (17836306) Irregular menstruation (N92.6) Active confirmed Vital Signs Heart Rate 79 /min 07/22/2024 Height-cm 170.18 cm 07/22/2024 Blood pressure diastolic 77 mm Hg 07/22/2024 Weight-kg 54.89 kg 07/22/2024 Height 67 in 07/22/2024 Blood pressure systolic 128 mm Hg 07/22/2024 Weight 121.0 lbs 07/22/2024 BMI 18.95 kg/m2 07/22/2024 Encounters Encounter Location Date Provider Diagnosis [facility] Dr. Rogers [address] [place] [phone] 07/22/2024 Luna Rogers Pituitary microaden dashawn D35.2 ; Irregular menstruation N92.6 ; Abnormal weight loss R63.4 ; Polyarthritis M13.0 and Vitamin D deficiency, unspecified E55.[address] Rogers [address] [place] [phone] 07/28/[address] Rogers [address] [place] [phone] 08/09/2024 Luna Rogers Assessments Encounter Date Diagnosis [...] factor and SIMEON tests- Consider referral to computer installer based on test results and clinical presentation [...] examination and/or evaluation, counseling and educating the patient/family/summer child caregiver, ordering medications, tests, or procedures, referring and communicating with other health vocational childcare teacher, documenting clinical information in the electronic or other health record, independently interpreting results and communicating results to the patient/family/summer child caregiver and care coordinating patient plan. Patient alert and oriented x 4 and aware of discussion noted above and in agreeance to plan in management of pituitary microadenoma, irregular cycles, abnormal weight loss, polyarthritis. Plan Of Treatment No Information Insurance Providers Payer Name Payer Address Payer Phone Subscriber Number Group Number Insured Name Patient Relationship to Insured Coverage Start Date Coverage End Date [facility] [address] [address] [place] [phone] [id number] Santa Lozoya Self - patient is the insured Medical (General) History Medical History History ICD Code thyroid issues pituitary adenoma Surgical History Surgery Date(Month/Year) tubal ligation 2019 Hospitalization History Reason Date(Month/Year) broken left arm 2019
== END 2025-02-02 11:02 | disposition home or self-care (01) ==
PROVIDERS: PCP Family Medicine
DX: R94.7 Abnormal results of other endocrine function studies (principal); E16.2 Hypoglycemia, unspecified
CPT/HCPCS: 74177; Q9967